=== PATIENT | male | born 1965 | race Hispanic/Latino ===

== ENCOUNTER 2016-12-19 13:47 | Emergency (ER) | payer BC ==
[2016-12-19 14:12] VITALS: BMI 39.5
[2016-12-19] MEDS ORDERED: TDAP Vaccine 0.5 mL Syr IM ONE (14:14)
--- NOTE | 2016-12-19 14:16 | ED PDOC ---
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 Patient stated he noticed bleeding for bottom of right foot. He saw a puncture wound, and also a piece of stone that had puncture his shoe, and foot. Last tetanus is UKN. Denies other complains. Time/Duration: Prior to Arrival Context: Street Past Medical History - Provider Review Nursing Documentation Reviewed: Yes - Infectious Disease Hx of Infectious Diseases: None - Cardiac Hx Cardiac Disorders: No - Pulmonary Hx Respiratory Disorders: No - Neurological Hx Neurological Disorder: No - HEENT Hx HEENT Disorder: Yes Other/Comment: glasses - Renal Hx Renal Disorder: No - Endocrine/Metabolic Hx Endocrine Disorders: Yes Hx Diabetes Mellitus Type 2: Yes - Hematological/Oncological Hx Blood Disorders: No - Integumentary Hx Dermatological Disorder: No - Musculoskeletal/Rheumatological Hx Musculoskeletal Disorders: No - Gastrointestinal Hx Gastrointestinal Disorders: No - Genitourinary/Gynecological Hx Genitourinary Disorders: No - Psychiatric Hx Psychophysiologic Disorder: No Hx Substance Use: No - Surgical History Hx Amputation: Yes (R great toe) Other/Comment: circumsized, a few years ago. - Anesthesia Hx Anesthesia: Yes Hx Anesthesia Reactions: No Family/Social History - Physician Review Nursing Documentation Reviewed: Yes Family/Social History: No Known Family HX Smoking Status: Never Smoked Hx Alcohol Use: No Hx Substance Use: No Allergies/Home Meds Allergies/Adverse Reactions: Allergies No Known Allergies Allergy (Verified 12/19/16 14:13) Home Medications: Home Meds Medication Instructions Recorded Confirmed MetFORMIN [glucoPHAGE] 1,000 mg PO DAILY 12/19/16 12/19/16 Review of Systems - Review of Systems Constitutional: Normal. absent: Fatigue, Weight Change, Fevers Eyes: Normal ENT: Normal Respiratory: Normal Cardiovascular: Normal Gastrointestinal: Normal Genitourinary Male: Normal Musculoskeletal: Other (See HPI) Skin: Normal Neurological: Normal Endocrine: Normal Hemo/Lymphatic: Normal Psychiatric: Normal Physical Exam Vital Signs Temp Pulse Resp BP Pulse Ox 12/19/16 14:23 98.9 F 97 H 19 164/85 H 98 Temperature: Afebrile Blood Pressure: Hypertensive Pulse: Regular Respiratory Rate: Normal Appearance: Positive for: Well-Appearing, Non-Toxic, Comfortable Pain Distress: None Mental Status: Positive for: Alert and Oriented X 3 - Systems Exam Head: Present: Atraumatic, Normocephalic, Swelling Extroacular Muscles: Present: EOMI Conjunctiva: Present: Normal Mouth: Present: Moist Mucous Membranes Neck: Present: Normal Range of Motion Upper Extremity: Present: Normal Inspection, Normal ROM, NORMAL PULSES, Capillary Refill < 2s Lower Extremity: Present: NORMAL PULSES, Normal ROM, Neurovascularly Intact, Capillary Refill < 2 s, Other ((+) 3 mm puncture wound seen at ball area of right plantar foot. No bleeding, erythema, swelling, discharge of FB visualized ). No: Edema, CALF TENDERNESS, Cyanosis, Justice's Sign, Tenderness, Swelling, Erythema, Deformity, Temperature Abnormalties Neurological: Present: GCS=15, CN II-XII Intact, Speech Normal, Motor Func Grossly Intact, Normal Sensory Function Skin: Present: Warm, Dry, Normal Color. No: Rashes Psychiatric: Present: Alert, Oriented x 3, Normal Insight, Normal Concentration Medical Decision Making ED Course and Treatment: 12/19/16 15:51 Re-evaluation. Patient feels better. Discussed results and plan with patient who expresses understanding. All questions answered and there is agreement with the plan to discharge home with instructions. Patient stable for discharge. Return if symptoms persist or worsen. Wound care was performed by ER nurse.. 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 Re-evaluation Time: 15:51 Reassessment Condition: Re-examined, Improved - RAD Interpretation Narrative RAD Interpretations (Text): 12/19/16 15:51 Foot x-rays: No fx or FB Radiology Orders: 12/19/16 14:14 FOOT RIGHT 3 VIEWS ROUTINE [RAD] Stat - Medication Orders Current Medication Orders: Discontinued Medications Ciprofloxacin (Cipro) 500 mg PO ONCE STA PRN Reason: Protocol Stop: 12/19/16 14:15 Last Admin: 12/19/16 14:29 Dose: 500 mg Tetanus/Reduced Diphtheria/Acell Pertussis (Boostrix Vaccine Inj) 0.5 ml IM .ONCE ONE Stop: 12/19/16 14:15 Last Admin: 12/19/16 14:29 Dose: 0.5 ml Disposition/Present on Arrival - Present on Arrival Any Indicators Present on Arrival: No History of DVT/PE: No History of Uncontrolled Diabetes: No Urinary Catheter: No History of Decub. Ulcer: No History Surgical Site Infection Following: None - Disposition Have Diagnosis and Disposition been Completed?: Yes Diagnosis: Puncture wound of foot Disposition: HOME/ ROUTINE Disposition Time: 15:52 Patient Plan: Discharge Condition: GOOD Discharge Instructions (ExitCare): Puncture Wound (ED) Additional Instructions: Call private Shovel Logger for revaluation and wound check in 1 day. Take medication as instructed. Clean wound daily with soap and water. Return top emergency if unable to see Dr. Caballero or worsen symptoms. Be aware that Ciprofloxacin can cause tendonitis, or tendon ruptures, avoid strenuous activities. Prescriptions: Ciprofloxacin [Cipro] 500 mg PO BID #14 tab Mupirocin 2% Cream [Bactroban Cream] 1 applic TOP BID #1 tube Referrals: Samy Kumar MD [Primary Care Provider] - Follow up with primary Mackenzie Caballero DPM [Staff Provider] - Follow up with primary
[2016-12-19 14:24] VITALS: BP 164/85; PULSE 97; RESP 19; TEMP 98.9; O2SAT 98
--- NOTE | 2016-12-19 15:48 | RAD ---
PROCEDURE: Right Foot Radiographs. HISTORY: pain COMPARISON: None. 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 The study is otherwise unremarkable JOINTS: Normal. SOFT TISSUES: Normal. OTHER FINDINGS: None. IMPRESSION: No acute findings
== END 2016-12-19 15:58 | disposition home or self-care (01) ==
LOC: ED 13:47
DX: S91.331A Puncture wound without foreign body, right foot, initial encounter (principal); W26.8XXA Contact with other sharp object(s), not elsewhere classified, initial encounter; Y93.89 Activity, other specified; Y92.89 Other specified places as the place of occurrence of the external cause; Z23 Encounter for immunization